=== PATIENT | male | born 1975 | race Hispanic/Latino ===

== ENCOUNTER 2020-02-15 05:30 | Observation (INO) | payer OTHER ==
[~2020-02-15] VITALS: Ht 182.9 cm; Wt 159.8 kg
[2020-02-15] MEDS ORDERED: ONDANSETRON HCL INJ 2MG/ML 2ML 2 MG/ML VIAL IV STA (05:35)
[2020-02-15] MEDS ORDERED: SODIUM CHLORIDE 0.9% 1000ML 1,000 ML IV STA (05:35)
--- NOTE | 2020-02-15 05:35 | Emergency Department Note ---
"History of Present Illnes History of Present Illness Chief Complaint: Abdominal Complaints History of Present Illness This is a 44 year old male with right sided abd pain since this AM| . Historian: Patient Arrival Mode: Car Lighter Required: No Onset (how long ago): hour(s) (1) Radiation: Reports abdomen Severity: moderate Onset quality: gradual Duration (how long): hour(s) Timing of current episode: constant Progression: worsening Chronicity: new Relieving factors: rest Exacerbating factors: movement Associated symptoms: Reports fever/chills, Reports nausea/vomiting Treatments prior to arrival: none (SUSAN ELMORE DO) Past Medical/Family History Physician Review I have reviewed the patient's past medical and family history. Any updates have been documented here. (SUSAN ELMORE DO) Past Medical History Recent Fever: No Clinical Suspicion of Infectio: No New/Unexplained Change in Ment: No Past Surgical History: None (SUSAN ELMORE DO) Review of Systems Review of Systems Constitutional: Reports chills; Denies fever EENTM: Reports no symptoms Cardiovascular: Reports no symptoms Respiratory: Reports no symptoms Gastrointestinal: Reports abdominal pain, Reports nausea; Denies vomiting Genitourinary: Reports no symptoms Musculoskeletal: Reports no symptoms Integumentary: Reports no symptoms Neurological: Reports no symptoms Psychological: Reports no symptoms Endocrine: Reports no symptoms Hematological/Lymphatic: Reports no symptoms (SUSAN ELMORE DO) Physical Exam Related Data Allergies: Coded Allergies: No Known Allergies (Unverified , 02/15/20) Vital signs reviewed: Yes (JEFF SANTIAGO DO) Physical Exam CONSTITUTIONAL HENT EYES NECK PULMONARY CARDIOVASCULAR GASTROINTESTINAL GENITOURINARY SKIN MUSCULOSKELETAL NEUROLOGICAL PSYCHOLOGICAL (SUSAN ELMORE DO) Constitutional: Present well-developed, Present morbidly obese HENT: Present normocephalic, Present atraumatic, Present oropharynx clear/moist, Present nose normal HENT L/R: Present left ext ear normal, Present right ext ear normal Eyes: Reports PERRL, Reports conjunctivae normal Neck: Present ROM normal Pulmonary: Present effort normal, Present breath sounds normal Cardiovascular: Present regular rhythm, Present heart sounds normal, Present capillary refill normal, Present normal rate Abdominal: Present soft, Present bowel sounds normal, Present tender Genitourinary: Present exam deferred Skin: Present warm, Present dry Musculoskeletal: Present ROM normal Neurological: Present alert, Present oriented x 3, Present no gross motor or sensory deficits Psychological: Present mood/affect normal, Present judgement normal (DONR, JEFF, DO) Results Laboratory Lab results reviewed: Yes Laboratory comments Laboratory Tests Test 02/15/20 05:41 White Blood Count 8.92 x10e3/uL (4.8-10.8) Red Blood Count 5.53 x10e6/uL (4.3-5.7) Hemoglobin 16.4 g/dL (14.0-18.0) Hematocrit 49.3 % (38.2-49.6) Mean Corpuscular Volume 89.2 fL (81-99) Mean Corpuscular Hemoglobin 29.7 pg (28-32) Mean Corpuscular Hemoglobin Concent 33.3 g/dL (31-35) Red Cell Distribution Width 13.9 % (11.7-14.4) Platelet Count 170 x10e3/uL (140-360) Neutrophils (%) (Auto) 62.6 % (38.7-80.0) Lymphocytes (%) (Auto) 26.2 % (18.0-39.1) Monocytes (%) (Auto) 9.5 % (4.4-11.3) Eosinophils (%) (Auto) 1.0 % (0.0-6.0) Basophils (%) (Auto) 0.4 % (0.0-1.0) Neutrophils # (Auto) 5.6 (2.1-6.9) Lymphocytes # (Auto) 2.3 (1.0-3.2) Monocytes # (Auto) 0.9 (0.2-0.8) Eosinophils # (Auto) 0.1 (0.0-0.4) Basophils # (Auto) 0.0 (0.0-0.1) Absolute Immature Granulocyte (auto 0.03 x10e3/uL (0-0.1) Urine Color Yellow (YELLOW) Urine Clarity Sl cloudy (CLEAR) Urine pH 5 (5 - 7) Urine Specific [place] >=1.030 (1.010-1.025) Urine Protein 1+ (NEGATIVE) Urine Glucose (UA) Negative (NEGATIVE) Urine Ketones Negative (NEGATIVE) Urine Blood Large (NEGATIVE) Urine Nitrite Negative (NEGATIVE) Urine Bilirubin Small (NEGATIVE) Urine Urobilinogen 0.2 mg/dL (0.2 - 1) Urine Leukocyte Esterase Negative (NEGATIVE) Urine RBC 21-50 /HPF (0-5) Urine WBC 21-50 /HPF (0-5) Urine Epithelial Cells Few /LPF (NONE) Urine Bacteria Rare /HPF (NONE) Sodium Level 139 mmol/L (136-145) Potassium Level 3.8 mmol/L (3.5-5.1) Chloride Level 106 mmol/L (98-107) Carbon Dioxide Level 22 mmol/L (22-29) Anion Gap 14.8 mmol/L (8-16) Blood Urea Nitrogen 6 mg/dL (7-26) Creatinine 1.03 mg/dL (0.72-1.25) Estimat Glomerular Filtration Rate > 60 ML/MIN (60-) BUN/Creatinine Ratio 6 (6-25) Glucose Level 104 mg/dL (74-118) Calcium Level 8.9 mg/dL (8.4-10.2) Total Bilirubin 0.6 mg/dL (0.2-1.2) Aspartate Amino Transf (AST/SGOT) 73 IU/L (5-34) Alanine Aminotransferase (ALT/SGPT) 85 IU/L (0-55) Alkaline Phosphatase 90 IU/L (40-150) Creatine Kinase 818 IU/L (30-200) Creatine Kinase MB 6.00 ng/mL (0-5.0) Troponin I 0.020 ng/mL (0-0.300) Total Protein 7.0 g/dL (6.5-8.1) Albumin 4.3 g/dL (3.5-5.0) Globulin 2.7 g/dL (2.3-3.5) Albumin/Globulin Ratio 1.6 (0.8-2.0) Lipase 71 U/L (8-78) (JEFF SANTIAGO, ) Imaging Imaging results reviewed: Yes (JEFF SANTIAGO DO) Assessment & Plan Medical Decision Making MDM Diff Dx : ACS, SBO, appendicities, biliary pathology, pancreatitis, ischemic bowel, diverticulitis, CA (SUSAN ELOMRE DO) MDM 44 yo M arrived to the ED with complaints of right flank pain, attempts made to control patient's pain unsuccessful- pt requires hospital admission for pain control. Pt given morphine and ketorolac in the ED with minimal relief. (JEFF SANTIAGO, ) Assessment & Plan Final Impression: (1) Ureteral stone (JEFF SANTIAGO DO) Depart Disposition: ADMITTED Home Meds Active Scripts Tramadol Hcl (ULTRAM) 50 Mg Tablet, 50 MG PO Q6HR PRN for Mild Pain (1-3) or Fever>100.8, #14 TAB Prov:JEFF SANTIAGO DO 02/15/20 Tamsulosin Hcl* (FLOMAX*) 0.4 Mg Cap, 0.4 MG PO DAILY, #30 CAP 0 Refills Prov:JEFF SANTIAGO DO 02/15/20 Sulfamethoxazole/Trimethoprim (BACTRIM DS TABLET) 1 Each Tablet, 1 TAB PO BID, #20 TAB 0 Refills Prov:JEFF SANTIAGO DO 02/15/20 SUSAN ELMORE DO Feb 15, 2020 05:35 JEFF SANTIAGO DO Feb 15, 2020 08:19"
[2020-02-15] MEDS ORDERED: KETOROLAC TROMETHAMINE 30 MG/ML VIAL IV STA (05:38)
[2020-02-15] MEDS ORDERED: MORPHINE SULFATE INJ 4 MG/ML INJ 1ML IV ONE (05:45)
[2020-02-15 05:53] LABS: BASOPHILS % 0.4 % (0.0-1.0); EOSINOPHILS # (AUTO) 0.1 (0.0-0.4); HEMATOCRIT 49.3 % (38.2-49.6); HEMOGLOBIN 16.4 g/dL (14.0-18.0); LYMPHOCYTES # (AUTO) 2.3 (1.0-3.2); LYMPHOCYTES % 26.2 % (18.0-39.1); MEAN CORPUSCULAR HEMOGLOBIN 29.7 pg (28-32); MEAN CORPUSCULAR HGB CONC 33.3 g/dL (31-35); MEAN CORPUSCULAR VOLUME 89.2 fL (81-99); MONOCYTES # (AUTO) 0.9 (0.2-0.8); MONOCYTES % 9.5 % (4.4-11.3); NEUTROPHILS # (AUTO) 5.6 (2.1-6.9); NEUTROPHILS % 62.6 % (38.7-80.0); PLATELET COUNT 170 x10e3/uL (140-360); RED BLOOD COUNT 5.53 x10e6/uL (4.3-5.7); RED CELL DISTRIBUTION WIDTH 13.9 % (11.7-14.4)
[2020-02-15 06:13] LABS: CLARITY,URINE SL CLOUDY (CLEAR); COLOR,URINE YELLOW (YELLOW)
[2020-02-15 06:14] LABS: LEUKOCYTE ESTERASE ,URINE NEGATIVE (NEGATIVE); NITRITE,URINE NEGATIVE (NEGATIVE); PROTEIN,URINE DIPSTICK 1+ (NEGATIVE)
[2020-02-15 06:15] LABS: BACTERIA,URINE RARE /HPF; BILIRUBIN,URINE SMALL (NEGATIVE); EPITHELIAL CELLS,URINE FEW /LPF; KETONES,URINE NEGATIVE (NEGATIVE); RBC,URINE 21-50 /HPF (0-5); URINE UROBILINOGEN 0.2 mg/dL (0.2 - 1); WBC,URINE (MAN) 21-50 /HPF (0-5)
--- OUTSIDE RECORDS SUMMARY | 2020-02-15 06:29 | XMS REPORT | Continuity of Care Document ---
Author Author [facility] Organization [facility] Address [address] [place] [address] Phone Unavailable Care Team Providers Care Cad Designer Drafter Name Role Phone Unavailable Unavailable Payers Payer Name Policy Type Policy Number Effective Date Expiration Date S ource Problems This patient has no known problems. Allergies, Adverse Reactions, Alerts Allergy Name Allergy Type Status Severity Reaction(s) Onset Date Inacti ve Date Treating Clinician Comments Source No Known Allergies DA Active U 2019-07-30 00:00:00 [facility] Medications This patient has no known medications. Procedures This patient has no known procedures. Results Test Description Test Time Test Comments Results Result Comments Source BASIC METABOLIC PANEL 2019-07-31 06:04:00 Test Item SODIUM (test code = NA) 141 mmol/L 136-145 N POTASSIUM (test code = K) 3.7 mmol/L 3.5-5.1 N CHLORIDE (test code = CL) 106.0 mmol/L 98-107 N CARBON DIOXIDE (test code = CO2) 29.0 mmol/L 21-32 N ANION GAP (test code = GAP) 9.7 10-20 L GLUCOSE (test code = GLU) 105 mg/dL 74-106 N BLOOD UREA NITROGEN (test code = BUN) 9 mg/dL 7-18 N GLOMERULAR FILTRATION RATE (test code = GFR) > 60 mL/min >=60 Estimated GFR by using Modified MDRD formula.Chronic kidney disease is defined as either kidney damageor GFR <60 mL/min/1.73 m2 for >3 months. CREATININE (test code = CREAT) 0.90 mg/dL 0.7-1.3 N BUN/CREATININE RATIO (test code = BUN/CREA) 10.0 10-20 N CALCIUM (test code = CA) 8.8 mg/dL 8.5-10.1 N BASIC METABOLIC [id number] 06:00:00* Test Item Value Reference Range Interpretation Comments SODIUM (test code = NA) 141 mmol/L 136-145 N POTASSIUM (test code = K) 3.7 mmol/L 3.5-5.1 N CHLORIDE (test code = CL) 106.0 mmol/L 98-107 N CARBON DIOXIDE (test code = CO2) mmol/L 21-32 ANION GAP (test code = GAP) 10-20 GLUCOSE (test code = GLU) mg/dL 74-106 BLOOD UREA NITROGEN (test code = BUN) mg/dL 7-18 GLOMERULAR FILTRATION RATE (test code = GFR) mL/min >=60 CREATININE (test code = CREAT) mg/dL 0.7-1.3 BUN/CREATININE RATIO (test code = BUN/CREA) 10-20 CALCIUM (test code = CA) mg/dL 8.5-10.1 CBC W/AUTO [id number] 05:17:00* Test Item Value Reference Range Interpretation Comments WHITE BLOOD CELL (test code = WBC) 6.6 K/mm3 4.5-12.5 N RED BLOOD CELL (test code = RBC) 5.28 mill/mm3 4.0-5.8 N HEMOGLOBIN (test code = HGB) 15.9 gram/dL 13.0-17.5 N HEMATOCRIT (test code = HCT) 47.9 % 42.0-52.0 N MEAN CELL VOLUME (test code = MCV) 90.7 fL 80-98 N MEAN CELL HGB (test code = MCH) 30.1 picogram 27.0-33.0 N MEAN CELL HGB CONCETRATION (test code = MCHC) 33.2 gram/dL 33.0-36. 0 N RED CELL DISTRIBUTION WIDTH (test code = RDW) 13.6 % 11.6-16. 2 N RED CELL DISTRIBUTION WIDTH SD (test code = RDW-SD) 45.8 fL 37 .0-51.0 N PLATELET COUNT (test code = PLT) 170 K/mm3 150-450 N MEAN PLATELET VOLUME (test code = MPV) 11.6 fL 6.7-11.0 H NEUTROPHIL % (test code = NT%) 59.5 % 39.0-69.0 N IMMATURE GRANULOCYTE % (test code = IG%) 0.3 % 0.0-5.0 N LYMPHOCYTE % (test code = LY%) 29.5 % 25.0-55.0 N MONOCYTE % (test code = MO%) 8.7 % 0.0-10.0 N EOSINOPHIL % (test code = EO%) 1.5 % 0.0-5.0 N BASOPHIL % (test code = BA%) 0.5 % 0.0-1.0 N NUCLEATED RBC % (test code = NRBC%) 0.0 % 0-0 N NEUTROPHIL # (test code = NT#) 3.90 K/mm3 1.8-7.7 N IMMATURE GRANULOCYTE # (test code = IG#) 0.02 x10 3/uL 0-0.03 N LYMPHOCYTE # (test code = LY#) 1.93 K/mm3 1.0-5.0 N MONOCYTE # (test code = MO#) 0.57 K/mm3 0-0.8 N EOSINOPHIL # (test code = EO#) 0.10 K/mm3 0.0-0.5 N BASOPHIL # (test code = BA#) 0.03 K/mm3 0.0-0.2 N NUCLEATED RBC # (test code = NRBC#) 0.00 K/mm3 0.0-0.1 N CBC W/AUTO [id number] 05:16:00* Test Item Value Reference Range Interpretation Comments WHITE BLOOD CELL (test code = WBC) K/mm3 4.5-12.5 RED BLOOD CELL (test code = RBC) mill/mm3 4.0-5.8 HEMOGLOBIN (test code = HGB) 15.9 gram/dL 13.0-17.5 N HEMATOCRIT (test code = HCT) 47.9 % 42.0-52.0 N MEAN CELL VOLUME (test code = MCV) fL 80-98 MEAN CELL HGB (test code = MCH) picogram 27.0-33.0 MEAN CELL HGB CONCETRATION (test code = MCHC) gram/dL 33.0-36. 0 RED CELL DISTRIBUTION WIDTH (test code = RDW) % 11.6-16. 2 RED CELL DISTRIBUTION WIDTH SD (test code = RDW-SD) fL 37 .0-51.0 PLATELET COUNT (test code = PLT) K/mm3 150-450 MEAN PLATELET VOLUME (test code = MPV) fL 6.7-11.0 NEUTROPHIL % (test code = NT%) % 39.0-69.0 IMMATURE GRANULOCYTE % (test code = IG%) % 0.0-5.0 LYMPHOCYTE % (test code = LY%) % 25.0-55.0 MONOCYTE % (test code = MO%) % 0.0-10.0 EOSINOPHIL % (test code = EO%) % 0.0-5.0 BASOPHIL % (test code = BA%) % 0.0-1.0 NEUTROPHIL # (test code = NT#) K/mm3 1.8-7.7 LYMPHOCYTE # (test code = LY#) K/mm3 1.0-5.0 MONOCYTE # (test code = MO#) K/mm3 0-0.8 EOSINOPHIL # (test code = EO#) K/mm3 0.0-0.5 BASOPHIL # (test code = BA#) K/mm3 0.0-0.2 [id number] 19:09:00* Test Item Value Reference Range Interpretation Comments TROPONIN-I (test code = TROPI) 0.023 ng/mL 0-0.045 N COMMENTS TO CREDIT RESOLUTION REPRESENTATIVE: COLLECT 3 HOURS AFTER PREVIOUS [id number] 16:49:00* Test Item Value Reference Range Interpretation Comments TROPONIN-I (test code = TROPI) 0.028 ng/mL 0-0.045 N COMMENTS TO CREDIT RESOLUTION REPRESENTATIVE: COLLECT 3 HOURS AFTER PREVIOUS SAMPLE- CT ANGIO ABD PEL W [id number] 09:01:00 Name: JAVIER JUÁREZ [facility] : 1975 Age/S: 44 / M [address] [facility] Unit #: [id number] Loc: [place] [address] Phys: Luis Fernando Kan MD Acct: [id number] Dis Date: Status: REG ER PHONE #: [phone] Exam Date: 07/30/2019 0740 FAX #: [phone] Reason: r/o AAA Report Has Been Amended EXAMS: CPT CODE: [id number] CT ANGIO ABD PEL W CONT 38840 Addendum - 07/30/2019 SIGNED 07/30/2019 ADDENDUM: [id number] CT/CTAAPWCONT CT ANGIOGRAPHY OF ABDOMEN/PELVIS WITH CONTRAST Additional 3-D reconstructed images were submitted after initial dictation. Curved planar reconstruction, maximum intensity projection (MIP) and volume rendered images were generated. No new diagnostic information. Please refer to original report for complete discussion of examination findings. at 0901 Reported and signed by: Eileen To D.O. Transcribed: 07/30/2019 (0901) [email or web address] Report HISTORY: Epigastric pain radiating to back, r/o AAA TECHNIQUE: Immediate and delayed [address] images were obtained through the abdomen and pelvis after IV administration of 100 mL of Isovue-370 contrast. Sagittal and coronal reformatted images were generated. Automated exposure reduction (Auto mA/Smart mA) was utilized in compliance with ACR Image Wisely. COMPARISON: None FINDINGS: THORACIC: Please refer to separate chest CT report. HEPATOBILIARY: Hepatic steatosis. Gallbladder is normal. No biliary dilation. PANCREAS: No rmal. SPLEEN: Normal. PAGE 1 Signed Report (CONTINUED) Name: JAVIER JUÁREZ [facility] : 1975 Age/S: 44 / M [address] [facility] Unit #: [id number] Loc: [place] [address] Phys: Luis Fernando Kan MD Acct: [id number] Dis Date: Status: REG ER PHONE #: [phone] Exam Date: 07/30/2019 07 FAX #: [phone] Reason: r/o AAA Report Has Been Amended EXAMS: CPT CODE: [id number] CT ANGIO ABD PEL W CONT 94764 <Continued> ADRENALS: 1.8 cm left adrenal adenoma. GENITOURINARY: Kidneys are normal. No hydronephrosis. Evaluation of partially collapsed urinary bladder is limited, but no obvious bladder abnormality is present. Seminal vesicles and prostate gland are unremarkable. GASTROINTESTINAL: Limited evaluation the GI tract without oral contrast. No bowel obstruction or per ienteric inflammation. Appendix is normal. VASCULAR: No evidence of aortic aneurysm or dissection. LYMPHATICS: No enlarged lymph nodes by CT size criteria. PERITONEUM/OTHER: No intraperitoneal free air. No intraperi toneal free fluid. BONES/SOFT TISSUES: Degenerative changes of the s pine, sacroiliac joints, and hips. IMPRESSION: No acute intra-abdominal process. Specifically no abdominal aortic aneurysm or dissection. LOCATION: LP at 0818 Reported and signed by: Eileen To D.O. CC: Luis Fernando Kan MD Technologist:Madeleine Yeboah RT(R),CT CTDI: DLP: Trnscb Date/Time: 07/30/2019 (08) [email or web address] Orig Print D/T: S: 07/30/2019 (820) PAGE 2 Signed Report - CTA [id number] 09:00:00 Name: JAVIER JUÁREZ [facility] : 1975 Age/S: 44 / M [address] [facility] Unit #: [id number] Loc: [place] [address] Phys: Luis Fernando Kan MD Acct: [id number] Dis Date: Status: REG ER PHONE #: [phone] Exam Date: 07/30/2019 0740 FAX #: [phone] Reason: r/o dissection Report Has Been Amended EXAMS: CPT CODE: [id number] CTA CHEST 51360 Addendum - 07/30/2019 SIGNED 07/30/2019 ADDENDUM: [id number] CT/CTACHWWO CT ANGIOGRAPHY OF CHEST WITH CONTRAST Additional 3-D reconstructed images were submitted after initial dictation. Maximum intensity projection (MIP) and volume rendered reconstructions were generated. No new diagnostic information. Please refer to original report for complete discussion of examination findings. at 0900 Reported and signed by: Eileen To D.O. Transcribed: 07/30/2019 (09) [email or web address] Report HISTORY: Epigastric pain radiating to back; hypertension; r/o dissection TECHNIQUE: [address] images were obtained through the chest after IV administration of 100 mL of Isovue-370 contrast. Multiplanar reformatted images were generated. Automated exposure reduction (Auto mA/Smart mA) was utilized in compliance with ACR Image Wisely. COMPARISON: None FINDINGS: Lungs: No airspace consolidation or pleural effusion. Central airways are patent. Cardiovascular: Normal heart size. No pericardial effusion. No thoracic aortic aneurysm or dissection. Normal caliber pulmonary arteries. PAGE 1 Signed Report (CONTINUED) Name: JAVIER JUÁREZ [facility] : 1975 Age/S: 44 / M [address] Unit #: [id number] Loc: [place] [address] Phys: Luis Fernando Kan MD Acct: [id number] Dis Date: Status: REG ER PHONE #: [phone] Exam Date: 07/30/2019 0740 FAX #: [phone] Reason: r/o dissection Report Has Been Amended EXAMS: CPT CODE: [id number] CTA CHEST 43002 <Continued> Mediastinum: No lymphadenopathy. Visualized thyroid is unremarkable. Normal esophagus. Included upper abdomen: Please refer to separate abdominal CT report. Bones and superficial soft tissues: Degenerative changes of the spine. IMPRESSION: No acute cardiopulmonary process. Specifically, no thoracic aortic dissection. LOCATION: LP at 0813 Reported and signed by: Eileen To D.O. CC: Luis Fernando Kan MD Technologist:Madeleine torres RT(R),CT CTDI: DLP: Trnscb Date/Time: 07/30/2019 (08 ) [email or web address] Orig Print D/T: S: 07/30/2019 (0816) PAG E 2 Signed Report - CT ANGIO ABD PEL W [id number] 08:18:00 Name: JAVIER JUÁREZ [facility] : 1975 Age/S: 44 / M [address] Unit #: [id number] Loc: [place] [address] Phys: Luis Fernando Kan MD Acct: [id number] Dis Date: Status: REG ER PHONE #: [phone] Exam Date: 07/30/2019739 FAX #: [phone] Reason: r/o AAA EXAMS: CPT CODE: [id number] CT ANGIO ABD PEL W CONT 97282 HISTORY: Epigastric pain radiating to back, r/o AAA TECHNIQUE: Immediate and delayed [address] images were obtained through the abdomen and pelvis after IV administration of 100 mL of Isovue-370 contrast. Sagittal and coronal reformatted images were generated. Automated exposure reduction (Auto mA/Smart mA) was utilized in compliance with ACR Image Wisely. COMPARISON: None FINDINGS: THORACIC: Please refer to separate chest CT report. HEPATOBILIARY: Hepatic steatosis. Gallbladder is normal. No biliary dilation. PANCREAS: Normal. SPLEEN: Normal. ADRENALS: 1.8 cm left adrenal adenoma. GENITOURINARY: Kidneys are normal. No hydronephrosis. Evaluation of partially collapsed urinary bladder is limited, but no obvious bladder abnormality is present. Seminal vesicles and prostate gland are unremarkable. GASTROINTESTINAL: Limited evaluation the GI tract without oral contrast. No bowel obstruction or perienteric inflammation. Appendix is normal. VASCULAR: No evidence of aortic aneurysm or dissection. LYMPHATICS: No enlarged lymph nodes by CT size criteria. PERITONEUM/OTHER: No intraperitoneal free air. No in traperitoneal free fluid. BONES/SOFT TISSUES: Degenerative changes o f the spine, sacroiliac joints, and hips. IMPRESSI ON: No acute intra-abdominal process. Specifically no abdomina l aortic aneurysm or dissection. L OCATION: LP PAGE 1 Signed Report (CONTINUED) Name: JAVIER JUÁREZ [facility] : 1975 Age/S: 44 / M [address] [facility] Unit #: [id number] Loc: [place] [address] Phys: Luis Fernando Kan MD Acct: [id number] Dis Date: Status: REG ER PHONE #: [phone] Exam Date: 07/30/2019 0740 FAX #: [phone] Reason: r/o AAA EXAMS: CPT CODE: [id number] CT ANGIO ABD PEL W CONT 76455 < Continued> at 0818 Reported and signed by: Eileen To D.O. CC: Luis Fernando Kan MD Technologist:Madeleine Yeboah RT(R),CT CTDI: DLP: Trnscb Date/Time: 07/30/2019 (0818) [email or web address] Orig Print D/T: S: 07/30/2019 (6221) PAGE 2 Signed Report - CTA [id number] 08:13:00 Name: JAVIER JUÁREZ [facility] : 1975 Age/S: 44 / M [address] Unit #: [id number] Loc: [place] [address] Phys: Luis Fernando Kan MD Acct: [id number] Dis Date: Status: REG ER PHONE #: [phone] Exam Date: 07/30/2019 0740 FAX #: [phone] Reason: r/o dissection EXAMS: CPT CODE: [id number] CTA CHEST 23612 HISTORY: Epigastric pain radiating to back; hypertension; r/o dissection TECHNIQUE: [address] images were obtained through the chest after IV administration of 100 mL of Isovue-370 contrast. Multiplanar reformatted images were generated. Automated exposure reduction (Auto mA/Smart mA) was utilized in compliance with ACR Image Wisely. COMPARISON: None FINDINGS: Lungs: No airspace consolidation or pleural effusion. Central airways are patent. Cardiovascular: Normal heart size. No pericardial effusion. No thoracic aortic aneurysm or dissection. Normal caliber pulmonary arteries. Mediastinum: No lymphadenopathy. Visualized thyroid is unremarkable. Normal esophagus. Included upper abdomen: Please refer to separate abdominal CT report. Bones and superficial soft tissues: Degenerative changes of the spine. IMPRESSION: No acute cardiopul monary process. Specifically, no thoracic aortic dissection. LOCATION: LP Electronically Si gned by Eileen To D.O. on 07/30/2019 at 0813 Reported an d signed by: Eileen To D.O. PAGE 1 Signed Report (CONTINUED) Name: JAVIER JUÁREZ [facility] : 1975 Age/S: 44 / M [address] Unit #: [id number] Loc: [place] [address] Phys: Luis Fernando Kan MD Acct: [id number] Dis Date: Status: REG ER PHONE #: [phone] Exam Date: 07/30/201940 FAX #: [phone] Reason: r/o dissection EXAMS: CPT CODE: [id number] CTA CHEST 21666 < Continued> CC: Luis Fernando Kan MD Technologist:Madeleine Yeboah RT(R),CT CTDI: DLP: Trnscb Date/Time: 07/30/2019 (812) [email or web address] Orig Print D/T: S: 07/30/2019 (815) PAGE 2 Signed Report - CT HEAD/BRAIN W/O [id number] 07:28:00 Name: JAVIER JUÁREZ [facility] : 1975 Age/S: 44 / M [address] [facility] Unit #: [id number] Loc: [place] [address] Phys: Luis Fernando Kan MD Acct: [id number] Dis Date: Status: PRE ER PHONE #: [phone] Exam Date: 07/30/2019 0655 FAX #: [phone] Reason: OSMAN HTN EXAMS: CPT CODE: [id number] CT HEAD/BRAIN W/O CONT 98226 HISTORY: Headache, hypertension TECHNIQUE: Noncontrast 2.[address] of the head. Examination acquired within 24 hours of arrival. Automated exposure control for dose reduction; DLP: 928 mGy-cm. COMPARISON: None FINDINGS: No acute hemorrhage. No CT evidence of acute infarct. No intracranial mass or mass effect. No hydrocephalus. No extra-axial fluid collection. Visualized paranasal sinuses are clear. Mastoid air cells and middle ear cavities are clear. Orbital contents are unremarkable. Calvarium and skull base are intact. IMPRESSION: No acute intracranial process. LOCATION: LP at 0728 Reported and signed by: Eileen To D.O. CC: Luis Fernando Kan MD Technologist:Alejandro Yuan RT(R)(CT) CTDI: DLP: Trnscb Date/Time: 07/30/2019 (727) [email or web address] Orig Print D/T: S: 07/30/2019 (0732) PAGE 1 Signed Report - XR CHEST 1 [id number] 07:28:00 FAX: Luis Fernanod Kan MD [place]: St: PRE Name: JAVIER KIM [facility] : [birth year] Age/S: 44/M [address] [facility] #: [id number] Loc: [place] [address] Phys: Luis Fernando Kan MD Acct: [id number] Dis Date: Status: PRE ER PHONE #: [phone] Exam Date: 07/30/2019654 FAX #: [phone] Reason: CHEST PAIN EXAMS: CPT CODE: [id number] XR CHEST 1 V 38588 HISTORY: CHEST PAIN TECHNIQUE: AP chest x-ray COMPARISON: None FINDINGS: No airspace consolidation or pleural effusion. Normal heart size. Mediastinal silhouette is unremarkable. Visualized osseous structures are grossly intact. IMPRESSION: No radiogra phic evidence of acute cardiopulmonary process. LOCATION: LP at 0728 Reported and signed by: Eileen To D.O. CC: Luis Fernando Kan MD Technologist: MOODY ROSADO RT(R) Trnscrd Date/Time/By: 07/30/2019 (07) : By: [email or web address] Orig Print D/T: S: 07/30/2019 (0753) PAGE 1 Signed R e[place] BASIC METABOLIC [id number] 06:59:00* Test Item Value Reference Range Interpretation Comments SODIUM (test code = NA) 137 mmol/L 136-145 N POTASSIUM (test code = K) 3.5 mmol/L 3.5-5.1 N CHLORIDE (test code = CL) 104.0 mmol/L 98-107 N CARBON DIOXIDE (test code = CO2) 25.0 mmol/L 21-32 N ANION GAP (test code = GAP) 11.5 10-20 N GLUCOSE (test code = GLU) 116 mg/dL 74-106 H BLOOD UREA NITROGEN (test code = BUN) 8 mg/dL 7-18 N GLOMERULAR FILTRATION RATE (test code = GFR) > 60 mL/min >=60 Estimated GFR by using Modified MDRD formula.Chronic kidney disease is defined as either kidney damageor GFR <60 mL/min/1.73 m2 for >3 months. CREATININE (test code = CREAT) 1.00 mg/dL 0.7-1.3 N BUN/CREATININE RATIO (test code = BUN/CREA) 8.0 10-20 L CALCIUM (test code = CA) 9.5 mg/dL 8.5-10.1 N HEPATIC FUNCTION [id number] 06:59:00* Test Item Value Reference Range Interpretation Comments TOTAL PROTEIN (test code = PROT) 8.0 gram/dL 6.4-8.2 N ALBUMIN (test code = ALB) 4.0 g/dL 3.4-5.0 N GLOBULIN (test code = GLOB) 4.0 gram/dL 2.7-4.2 N ALBUMIN/GLOBULIN RATIO (test code = A/G) 1.0 0.75-1.50 N BILIRUBIN TOTAL (test code = BILT) 0.70 mg/dL 0.0-1.0 N BILIRUBIN DIRECT (test code = BILD) 0.15 mg/dL 0.0-0.20 N SGOT/AST (test code = AST) 45 IUnit/L 15-37 H SGPT/ALT (test code = ALT) 47 IUnit/L 12-78 N ALKALINE PHOSPHATASE TOTAL (test code = ALKP) 114 IUnit/L 45-117 N Note change in reference range due to change in reagent. [id number] 06:59:00* Test Item Value Reference Range Interpretation Comments LIPASE (test code = LIP) 85 U/L 73.0-393.0 N [id number] 06:59:00* Test Item Value Reference Range Interpretation Comments TROPONIN-I (test code = TROPI) <0.015 ng/mL 0-0.045 N BASIC METABOLIC [id number] 06:49:00* Test Item Value Reference Range Interpretation Comments SODIUM (test code = NA) 137 mmol/L 136-145 N POTASSIUM (test code = K) 3.5 mmol/L 3.5-5.1 N CHLORIDE (test code = CL) 104.0 mmol/L 98-107 N CARBON DIOXIDE (test code = CO2) mmol/L 21-32 ANION GAP (test code = GAP) 10-20 GLUCOSE (test code = GLU) mg/dL 74-106 BLOOD UREA NITROGEN (test code = BUN) mg/dL 7-18 GLOMERULAR FILTRATION RATE (test code = GFR) mL/min >=60 CREATININE (test code = CREAT) mg/dL 0.7-1.3 BUN/CREATININE RATIO (test code = BUN/CREA) 10-20 CALCIUM (test code = CA) mg/dL 8.5-10.1 HEPATIC FUNCTION [id number] 06:49:00* Test Item Value Reference Range Interpretation Comments TOTAL PROTEIN (test code = PROT) gram/dL 6.4-8.2 ALBUMIN (test code = ALB) g/dL 3.4-5.0 GLOBULIN (test code = GLOB) gram/dL 2.7-4.2 ALBUMIN/GLOBULIN RATIO (test code = A/G) 0.75-1.50 BILIRUBIN TOTAL (test code = BILT) mg/dL 0.0-1.0 BILIRUBIN DIRECT (test code = BILD) mg/dL 0.0-0.20 SGOT/AST (test code = AST) IUnit/L 15-37 SGPT/ALT (test code = ALT) IUnit/L 12-78 ALKALINE PHOSPHATASE TOTAL (test code = ALKP) IUnit/L 45-117 [id number] 06:49:00* Test Item Value Reference Range Interpretation Comments LIPASE (test code = LIP) U/L 73.0-393.0 [id number] 06:49:00* Test Item Value Reference Range Interpretation Comments TROPONIN-I (test code = TROPI) ng/mL 0-0.045 CBC W/O [id number] 06:39:00* Test Item Value Reference Range Interpretation Comments WHITE BLOOD CELL (test code = WBC) 12.7 K/mm3 4.5-12.5 H RED BLOOD CELL (test code = RBC) 5.81 mill/mm3 4.0-5.8 H HEMOGLOBIN (test code = HGB) 17.4 gram/dL 13.0-17.5 N HEMATOCRIT (test code = HCT) 51.3 % 42.0-52.0 N MEAN CELL VOLUME (test code = MCV) 88.3 fL 80-98 N MEAN CELL HGB (test code = MCH) 29.9 picogram 27.0-33.0 N MEAN CELL HGB CONCETRATION (test code = MCHC) 33.9 gram/dL 33.0-36. 0 N RED CELL DISTRIBUTION WIDTH (test code = RDW) 13.8 % 11.6-16. 2 N PLATELET COUNT (test code = PLT) 215 K/mm3 150-450 N MEAN PLATELET VOLUME (test code = MPV) 11.1 fL 6.7-11.0 H CBC W/O [id number] 06:38:00* Test Item Value Reference Range Interpretation Comments WHITE BLOOD CELL (test code = WBC) K/mm3 4.5-12.5 RED BLOOD CELL (test code = RBC) mill/mm3 4.0-5.8 HEMOGLOBIN (test code = HGB) 17.4 gram/dL 13.0-17.5 N HEMATOCRIT (test code = HCT) 51.3 % 42.0-52.0 N MEAN CELL VOLUME (test code = MCV) fL 80-98 MEAN CELL HGB (test code = MCH) picogram 27.0-33.0 MEAN CELL HGB CONCETRATION (test code = MCHC) gram/dL 33.0-36. 0 RED CELL DISTRIBUTION WIDTH (test code = RDW) % 11.6-16. 2 PLATELET COUNT (test code = PLT) K/mm3 150-450 MEAN PLATELET VOLUME (test code = MPV) fL 6.7-11.0
--- NOTE | 2020-02-15 06:53 | Diagnostic Imaging Report ---
EXAM: CT Abdomen and Pelvis WITHOUT contrast INDICATION: ^Right sided abd pain ^20200215 ^0630 COMPARISON: None. TECHNIQUE: Abdomen and pelvis were scanned utilizing a multidetector helical scanner from the lung base to the pubic symphysis without administration of IV contrast. Absence of intravenous contrast decreases sensitivity for detection of focal lesions and vascular pathology. Coronal and sagittal reformations were obtained. Routine protocol was performed. IV CONTRAST: None ORAL CONTRAST: Water COMPLICATIONS: None RADIATION DOSE: Total DLP: 851.41 mGy*cm Estimated effective dose: (DLP x 0.015 x size factor) mSv CTDIvol has been reviewed. It is below the limits set by the Radiation Protocol Committee (RPC). FINDINGS: LINES and TUBES: None. LOWER THORAX: Unremarkable HEPATOBILIARY: Unenhanced liver is unremarkable. No biliary ductal dilation. GALLBLADDER: No radio-opaque stones or sludge. No wall thickening. SPLEEN: No splenomegaly. PANCREAS: No focal masses or ductal dilatation. ADRENALS: No adrenal nodules KIDNEYS/URETERS: Mild right perinephric fat stranding as well as minimal hydroureteronephrosis, caused by a 2 mm right ureterovesical junction calculus. Limited for evaluation of renal parenchyma without intravenous contrast. Left kidney is unremarkable. No hydronephrosis or left renal stone. GI TRACT: No abnormal distention, wall thickening, or evidence of bowel obstruction. There are diverticula within the colon without evidence of diverticulitis. Appendix is normal. PELVIC ORGANS/BLADDER: Bladder is collapsed. Prostate calcifications. LYMPH NODES: No lymphadenopathy. VESSELS: Unremarkable. PERITONEUM / RETROPERITONEUM: No free air or fluid. BONES: Degenerative changes of spine. SOFT TISSUES: Small fat-containing umbilical hernia. IMPRESSION: Mild right perinephric fat stranding as well as minimal hydroureteronephrosis, caused by a 2 mm right ureterovesical junction calculus. Signed by: Dr. Sundeep Quintanilla MD on 02/15/2020 6:50 AM
[2020-02-15] MEDS ORDERED: CEFTRIAXONE SOD 1 GM/NS 50 ML 50 ML IV ONE (07:00)
[2020-02-15 07:07] LABS: ALANINE AMINOTRANSFERASE 85 IU/L (0-55); ALBUMIN 4.3 g/dL (3.5-5.0); ALBUMIN/GLOBULIN RATIO 1.6 (0.8-2.0); ALKALINE PHOSPHATASE 90 IU/L (40-150); ANION GAP 14.8 mmol/L (8-16); BLOOD UREA NITROGEN 6 mg/dL (7-26); BUN/CREATININE RATIO 6 (6-25); CALCIUM 8.9 mg/dL (8.4-10.2); CARBON DIOXIDE 22 mmol/L (22-29); CHLORIDE 106 mmol/L (98-107); CREATINE KINASE 818 IU/L (30-200); CREATININE, SERUM 1.03 mg/dL (0.72-1.25); EST GLOMERULAR FILTRATION RATE > 60 ML/MIN (60-); GLUCOSE 104 mg/dL (74-118); POTASSIUM 3.8 mmol/L (3.5-5.1); SODIUM 139 mmol/L (136-145)
[2020-02-15] MEDS ORDERED: BACTRIM DS TAB1 EACH PO (07:08)
[2020-02-15] MEDS ORDERED: ULTRAM50 MG PO (07:13)
[2020-02-15] MEDS ORDERED: FLOMAX0.4 MG PO (07:13)
--- NOTE | 2020-02-15 07:42 | NUR ---
rn primary and charge to room to re eval, pt with pain 8/10 sudden onset, medicated with morphine by primary nurse per er md order and updated pt and rn will re-eval at 0745, pt states verbal understanding. service recovered practiced.
--- NOTE | 2020-02-15 07:42 | NUR ---
0723 primary nurse to room updated pt of plan of care and service recovery.
--- OUTSIDE RECORDS SUMMARY | 2020-02-15 08:21 | XMS REPORT | Continuity of Care Document ---
Author Author [facility] t Organization [facility] Address [address] [place] [address] Phone Unavailable Care Team Providers Care Assisted Living Associate Name Role Phone SUSAN ELMORE Unavailable Payers Payer Name Policy Type Policy Number Effective Date Expiration Date S ource Problems This patient has no known problems. Allergies, Adverse Reactions, Alerts Allergy Name Allergy Type Status Severity Reaction(s) Onset Date Inacti ve Date Treating Clinician Comments Source No Known Allergies DA Active U 2019-07-30 00:00:00 [facility] Medications This patient has no known medications. Procedures This patient has no known procedures. Results Test Description Test Time Test Comments Results Result Comments Source CT ABDOMEN/PELVIS WO 2020-02-15 06:43:00 [facility] [address] [address] Patient Name: JAVIER JUÁREZ MR #: [id number] : 1975 Age/Sex: 44/M Req #: [id number] Adm Physician: Ordered by: SUSAN ELMORE DO Report #: [id number] Location: ER Room/Bed: Procedure: [id number] CT/CT ABDOMEN/PELVIS WO Exam Date: 02/15/20 Exam Time: 629 REPORT STATUS: Signed EXAM: CT Abdomen and Pelvis WITHOUT contrast INDICATION: Right sided abd pain 20200215 COMPARISON: None. TECHNIQUE: Abdomen and pelvis were scanned utilizing a multidetector helical scanner from the lung base to the pubic symphysis without administration of IV contrast. Absence of intravenous contrast decreases sensitivity for detection of focal lesions and vascular pathology. Coronal and sagittal reformations were obtained. Routine protocol was performed. IV CONTRAST: None ORAL CONTRAST: Water COMPLICATIONS: None RADIATION DOSE: Total DLP: 851.41 mGy*cm Estimated effective dose: (DLP x 0.015 x size factor) mSv CTDIvol has been reviewed. It is below the limits set by the Radiation Protocol Committee (RPC). FINDINGS: LINES and TUBES: None. LOWER THORAX: Unremarkable HEPATOBILIARY: Unenhanced liver is unremarkable. No biliary ductal dilation. GALLBLADDER: No radio-opaque stones or sludge. No wall thickening. SPLEEN: No splenomegaly. PANCREAS: No focal masses or ductal dilatation. ADRENALS: No adrenal nodules KIDNEYS/URETERS: Mild right perinephric fat stranding as well as minimal hydroureteronephrosis , caused by a 2 mm right ureterovesical junction calculus. Limited for evaluation of renal parenchyma without intravenous contrast. Left kidney is unremarkable. No hydronephrosis or left renal stone. GI TRACT: No abnormal distention, wall thickening, or evidence of bowel obstruction. There are diverticula within the colon without evidence of diverticulitis. Appendix is normal. PELVIC ORGANS/BLADDER: Bladder is collapsed. Prostate calcifications. LYMPH NODES: No lymphadenopathy. VESSELS: Unremarkable. PERITONEUM / RETROPERITONEUM: No free air or fluid. BONES: Degenerative changes of spine. SOFT TISSUES: Small fat-containing umbilical hernia. IMPRESSION: Mild right perinephric fat stranding as well as minimal hydroureteronephrosis, caused by a 2 mm right ureterovesical junction calculus. Signed by: Dr. Sundeep Elliott MD on 02/15/2020 6:50 AM Dictated By: SUNDEEP ELLIOTT MD 9 Transcribed By: ALIDA on 02/15/2050 COPY TO: SUSAN ELMORE DO BASIC METABOLIC PANEL 2019-07-31 06:04:00 Test Item [...] CA) 8.8 mg/dL 8.5-10.1 N BASIC METABOLIC [id number] 06:00:00* Test Item Value Reference Range Interpretation [...] code = CA) mg/dL 8.5-10.1 CBC W/AUTO [id number] 05:17:00* Test Item Value Reference Range Interpretation [...] NRBC#) 0.00 K/mm3 0.0-0.1 N CBC W/AUTO [id number] 05:16:00* Test Item Value Reference Range Interpretation [...] # (test code = BA#) K/mm3 0.0-0.2 [id number] 19:09:00* Test Item Value Reference Range Interpretation Comments TROPONIN-I (test code = TROPI) 0.023 ng/mL 0-0.045 N COMMENTS TO FIRESTOP/CONTAINMENT WORKER: COLLECT 3 HOURS AFTER PREVIOUS [id number] 16:49:00* Test Item Value Reference Range Interpretation Comments TROPONIN-I (test code = TROPI) 0.028 ng/mL 0-0.045 N COMMENTS TO FIRESTOP/CONTAINMENT WORKER: COLLECT 3 HOURS AFTER PREVIOUS SAMPLE- CT ANGIO ABD PEL W [id number] 09:01:00 Name: JAVIER JUÁREZ [facility] : 1975 Age/S: 44 / M [address] [facility] Unit #: [id number] Loc: [place] [address] Phys: Luis Fernando Kan MD Acct: [id number] Dis Date: Status: REG ER PHONE #: [phone] Exam Date: 07/30/2019 0740 FAX #: [phone] Reason: r/o AAA Report Has Been Amended EXAMS: CPT CODE: [id number] CT ANGIO ABD PEL W CONT 31601 Addendum - 07/30/2019 SIGNED 07/30/2019 ADDENDUM: [id number] CT/CTAAPWCONT CT ANGIOGRAPHY OF ABDOMEN/PELVIS WITH CONTRAST [...] 1 Signed Report (CONTINUED) Name: JAVIER JUÁREZ [facility] : 1975 Age/S: 44 / M [address] Unit #: [id number] Loc: [place] [address] Phys: Luis Fernando Kan MD Acct: [id number] Dis Date: Status: REG ER PHONE #: [phone] Exam Date: 07/30/201940 FAX #: [phone] Reason: r/o AAA Report Has Been Amended EXAMS: CPT CODE: [id number] CT ANGIO ABD PEL W CONT 15695 <Continued> ADRENALS: 1.8 cm left adrenal adenoma. [...] RT(R),CT CTDI: DLP: Trnscb Date/Time: 07/30/2019 (0818) [email or web address] Orig Print D/T: S: 07/30/2019 (0821) PAGE 2 Signed Report - CTA [id number] 09:00:00 Name: JAVIER JUÁREZ [facility] : 1975 Age/S: 44 / M [address] Unit #: [id number] Loc: [place] [address] Phys: Luis Fernando Kan MD Acct: [id number] Dis Date: Status: REG ER PHONE #: [phone] Exam Date: 07/30/2019 0740 FAX #: [phone] Reason: r/o dissection Report Has Been Amended EXAMS: CPT CODE: [id number] CTA CHEST 28450 Addendum - 07/30/2019 SIGNED 07/30/2019 ADDENDUM: [id number] CT/CTACHWWO CT ANGIOGRAPHY OF CHEST WITH CONTRAST Additional 3-D reconstructed images were submitted after initial dictation. Maximum intensity projection (MIP) and volume rendered reconstructions were generated. No new diagnostic information. Please refer to original report for complete discussion of examination findings. at 0900 Reported and signed by: Eileen To D.O. Transcribed: 07/30/2019 (0900) [email or web address] Report HISTORY: Epigastric pain radiating to [...] 1 Signed Report (CONTINUED) Name: JAVIER JUÁREZ [facility] : 1975 Age/S: 44 / M [address] [facility] Unit #: [id number] Loc: [place] [address] Phys: Luis Fernando Kan MD Acct: [id number] Dis Date: Status: REG ER PHONE #: [phone] Exam Date: 07/30/2019 0740 FAX #: [phone] Reason: r/o dissection Report Has Been Amended EXAMS: CPT CODE: [id number] CTA CHEST 94000 <Continued> Mediastinum: No lymphadenopathy. Visualized thyroid is [...] CTDI: DLP: Trnscb Date/Time: 07/30/2019 (08 ) [email or web address] Orig Print D/T: S: 07/30/2019 (0816) PAG E 2 Signed Report - CT ANGIO ABD PEL W [id number] 08:18:00 Name: JAVIER JUÁREZ [facility] : 1975 Age/S: 44 / M [address] [facility] Unit #: [id number] Loc: [place] [address] Phys: Luis Fernando Kan MD Acct: [id number] Dis Date: Status: REG ER PHONE #: [phone] Exam Date: 07/30/2019 07 FAX #: [phone] Reason: r/o AAA EXAMS: CPT CODE: [id number] CT ANGIO ABD PEL W CONT 15640 HISTORY: Epigastric pain radiating to back, r/o [...] 1 Signed Report (CONTINUED) Name: JAVIER JUÁREZ [facility] : 1975 Age/S: 44 / M [address] Unit #: [id number] Loc: [place] [address] Phys: Luis Fernando Kan MD Acct: [id number] Dis Date: Status: REG ER PHONE #: [phone] Exam Date: 07/30/201940 FAX #: [phone] Reason: r/o AAA EXAMS: CPT CODE: [id number] CT ANGIO ABD PEL W CONT 57597 < Continued> at 0818 Reported and signed by: Eileen To D.O. CC: Luis Fernando Kan MD Technologist:Madeleine Yeboah RT(R),CT CTDI: DLP: Trnscb Date/Time: 07/30/2019 (817) [email or web address] Orig Print D/T: S: 07/30/2019 (820) PAGE 2 Signed Report - CTA [id number] 08:13:00 Name: JAVIER JUÁREZ [facility] : 1975 Age/S: 44 / M [address] Unit #: [id number] Loc: [place] [address] Phys: Luis Fernando Kan MD Acct: [id number] Dis Date: Status: REG ER PHONE #: [phone] Exam Date: 07/30/2019 0740 FAX #: [phone] Reason: r/o dissection EXAMS: CPT CODE: [id number] CTA CHEST 33157 HISTORY: Epigastric pain radiating to back; hypertension; [...] 1 Signed Report (CONTINUED) Name: JAVIER JUÁREZ [facility] : 1975 Age/S: 44 / M [address] Unit #: [id number] Loc: [place] [address] Phys: Luis Fernando Kan MD Acct: [id number] Dis Date: Status: REG ER PHONE #: [phone] Exam Date: 07/30/2019 0740 FAX #: [phone] Reason: r/o dissection EXAMS: CPT CODE: [id number] CTA CHEST 06090 < Continued> CC: Luis Fernando Kan MD Technologist:Madeleine Yeboah RT(R),CT CTDI: DLP: Trnscb Date/Time: 07/30/2019 (812) [email or web address] Orig Print D/T: S: 07/30/2019 (16) PAGE 2 Signed Report - CT HEAD/BRAIN W/O [id number] 07:28:00 Name: JAVIER JUÁREZ [facility] : 1975 Age/S: 44 / M [address] Unit #: [id number] Loc: [place] [address] Phys: Luis Fernando Kan MD Acct: [id number] Dis Date: Status: PRE ER PHONE #: [phone] Exam Date: 07/30/2019 0655 FAX #: [phone] Reason: OSMAN HTN EXAMS: CPT CODE: [id number] CT HEAD/BRAIN W/O CONT 95606 HISTORY: Headache, hypertension TECHNIQUE: Noncontrast 2.5 mm [...] D.O. CC: Luis Fernando Kan MD Technologist:Alejandro Yuan, RT(R)(CT) CTDI: DLP: Trnscb Date/Time: 07/30/2019 (727) [email or web address] Orig Print D/T: S: 07/30/2019 (0716) PAGE 1 Signed Report - XR CHEST 1 [id number] 07:28:00 FAX: Luis Fernando Kan MD [place]: [address] St: PRE Name: JAVIER KIM [facility] : [birth year] Age/S: 44/M [address] [facility] Unit #: [id number] Loc: [place] [address] Phys: Luis Fernando Kan MD Acct: [id number] Dis Date: Status: PRE ER PHONE #: [phone] Exam Date: 07/30/2019 06 FAX #: [phone] Reason: CHEST PAIN EXAMS: CPT CODE: [id number] XR CHEST 1 V 61076 HISTORY: CHEST PAIN TECHNIQUE: AP chest x-ray COMPARISON: None FINDINGS: No airspace consolidation or pleural effusion. Normal heart size. Mediastinal silhouette is unremarkable. Visualized osseous structures are grossly intact. IMPRESSION: No radiogra phic evidence of acute cardiopulmonary process. LOCATION: at 0728 Reported and signed by: Eileen To D.O. CC: Luis Fernando Kan MD Technologist: MOODY ROSADO RT(R) Trnscrd Date/Time/By: 07/30/2019 (56) : By: [email or web address] Orig Print D/T: S: 07/30/2019 (0899) PAGE 1 Signed R eport BASIC METABOLIC [id number] 06:59:00* Test Item Value Reference Range Interpretation [...] CA) 9.5 mg/dL 8.5-10.1 N HEPATIC FUNCTION [id number] 06:59:00* Test Item Value Reference Range Interpretation [...] reference range due to change in reagent. [id number] 06:59:00* Test Item Value Reference Range Interpretation Comments LIPASE (test code = LIP) 85 U/L 73.0-393.0 N [id number] 06:59:00* Test Item Value Reference Range Interpretation Comments TROPONIN-I (test code = TROPI) <0.015 ng/mL 0-0.045 N BASIC METABOLIC [id number] 06:49:00* Test Item Value Reference Range Interpretation [...] code = CA) mg/dL 8.5-10.1 HEPATIC FUNCTION [id number] 06:49:00* Test Item Value Reference Range Interpretation [...] TOTAL (test code = ALKP) IUnit/L 45-117 [id number] 06:49:00* Test Item Value Reference Range Interpretation Comments LIPASE (test code = LIP) U/L 73.0-393.0 [id number] 06:49:00* Test Item Value Reference Range Interpretation Comments TROPONIN-I (test code = TROPI) ng/mL 0-0.045 CBC W/O [id number] 06:39:00* Test Item Value Reference Range Interpretation [...] MPV) 11.1 fL 6.7-11.0 H CBC W/O [id number] 06:38:00* Test Item Value Reference Range Interpretation [...]
[2020-02-15] MEDS: ONDANSETRON HCL INJ 2MG/ML 2ML 2 MG/ML VIAL IV PRN ×2 (08:45→15:08)
[2020-02-15] MEDS: MORPHINE SULFATE INJ 4 MG/ML INJ 1ML IV PRN ×3 (08:45→21:15)
--- NOTE | 2020-02-15 09:00 | NUR ---
PT ARRIVED TO FLOOR VIA W/C, . PATIENT IS RESTING IN BED, AAOX3. RESP EVEN AND UNLABORED. NO ACUTE DISTRESS NOTED. EDUCATED PT ABOUT FALL PRECAUTIONS. PT VERBALIZED UNDERSTANDING. BED IS LOWEST POSITION AND LOCKED. SIDE RAILS X2. CALL LIGHT WITH IN EASY REACH. PT DENIES PAIN AT THIS TIME. WILL CONT TO MONITOR.
[2020-02-15] MEDS: SODIUM CHLORIDE 0.9% 1000ML 1,000 ML IV SCH ×2 (11:07→20:09)
[2020-02-15 11:15] VITALS: BP 138/89
[2020-02-15 12:00] VITALS: BP 162/97
--- NOTE | 2020-02-15 12:30 | NUR ---
URINE STRAINED SMALL OBJECT IN URINE SENT TO LAB, FOR ANALYSIS.
[2020-02-15 16:00] VITALS: BP 159/108
--- NOTE | 2020-02-15 16:25 | History and Physical ---
CHIEF COMPLAINT: A 44-year-old gentleman, came in with abdominal pain. HISTORY OF PRESENTING ILLNESS: Mr. Baker is a 44-year-old gentleman with no medical history except for hypertension which he does not take care of, was usual state of health until he started with right-sided abdominal pain radiating to the groin. The patient had a CT and was found to have urethral stones. The patient admitted to the hospital for pain control and also for ureteral stones. PAST MEDICAL HISTORY: No significant history except for hypertension which he is not taking any medications for. PAST SURGICAL HISTORY: 1. History of hernia surgery when he was a young kid, right side. 2. History of jaw surgery, status post trauma. ALLERGIES: NKDA. MEDICATIONS: None. SOCIAL HISTORY: Drinks heavily during the weekends. History of smoking 2-3 cigarettes a day. No IV drug abuse. REVIEW OF SYSTEMS: Negative for chest pain. No shortness of breath. Positive for abdominal pain. Some nausea. No vomiting. No diarrhea. No constipation. No rectal bleeding. No hematemesis. No hematochezia. No chills. No psychological problems either. No diplopia. No blurry vision. PHYSICAL EXAMINATION: VITAL SIGNS: On arrival to the ED, 97.6 temperature, pulse of 80, respirations of 20, blood pressure is 162/97, and pulse oximetry of 96%. HEENT: Normocephalic, atraumatic. The patient is obese. CVS: S1 and S2 normal. Regular rhythm. ABDOMEN: Tender in the right mid quadrant. CVA tenderness present. EXTREMITIES: No clubbing. No cyanosis. Positive for trace edema. LABORATORY VALUES: Initial white count is 8.92, hemoglobin of 16.4, and hematocrit 49.3. Chemistry shows sodium 139, potassium 3.8, BUN of 6, and creatinine is 1.03. ALT of 85, AST of 75, creatine kinase is 818, and lipase is 71. Urine was cloudy with RBCs and WBCs. Serology; valverde virus is pending. IMAGING STUDIES: Abdominal CT shows mild right perinephric fat stranding as well as minimal hydroureteronephrosis caused by 2 mm right ureterovesical junction calculus which the patient has passed. ASSESSMENT: Mr. Shamir Baker with: 1. Urethral stone. The patient has passed it. 2. Pyelonephritis. 3. Hydronephrosis. 4. 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 5. Obesity. PLAN: Continue on IV fluids 125 mL an hour. Blood cultures are pending. Urine cultures are pending. Urology consult will be done. We will start the patient on antibiotics. Currently, he is on Rocephin 1 g. We will go ahead and keep that and continue on. Further recommendation per clinical course. Also, the Urology consult, Dr. Pham will monitor the patient. Fluid resuscitation. Continue with fluids for rhabdomyolysis. MD MANISHA Britton/MODL /[id number]
--- NOTE | 2020-02-15 19:20 | NUR ---
Patient received sitting up in bed. AAO x 4. Patient had no complaints of pain. Respirations even and non-labored. IVF infusing at 125 cc/hr. Safety measures implemented. Patient instructed to call for assistance when needed.
[2020-02-15 20:00] VITALS: BP 176/113
[2020-02-15] MEDS ORDERED: CLONIDINE HCL 0.1 MG TAB PO PRN (20:15)
--- NOTE | 2020-02-15 20:21 | NUR ---
Patient's BP elevated (176/113). Dr. Warren notified. New orders received for Clonidine 0.1 mg Q6H PRN for SBP > 170 and KUB in am (02/15).
[2020-02-15] MEDS: CEFTRIAXONE SOD 1 GM/NS 50 ML 50 ML IV SCH (21:02)
[2020-02-16] VITALS: BP 152/102
[2020-02-16 01:03] VITALS: BP 152/102
[2020-02-16 04:00] VITALS: BP 169/111
[2020-02-16 05:15] LABS: BASOPHILS % 0.4 % (0.0-1.0); EOSINOPHILS # (AUTO) 0.2 (0.0-0.4); HEMATOCRIT 47.8 % (38.2-49.6); HEMOGLOBIN 15.7 g/dL (14.0-18.0); LYMPHOCYTES # (AUTO) 2.2 (1.0-3.2); LYMPHOCYTES % 30.2 % (18.0-39.1); MEAN CORPUSCULAR HEMOGLOBIN 29.9 pg (28-32); MEAN CORPUSCULAR HGB CONC 32.8 g/dL (31-35); MONOCYTES # (AUTO) 0.8 (0.2-0.8); MONOCYTES % 10.8 % (4.4-11.3); NEUTROPHILS # (AUTO) 4.2 (2.1-6.9); NEUTROPHILS % 56.3 % (38.7-80.0); PLATELET COUNT 149 x10e3/uL (140-360); RED BLOOD COUNT 5.25 x10e6/uL (4.3-5.7); RED CELL DISTRIBUTION WIDTH 14.1 % (11.7-14.4)
[2020-02-16 05:47] LABS: ALANINE AMINOTRANSFERASE 65 IU/L (0-55); ALBUMIN 3.7 g/dL (3.5-5.0); ALBUMIN/GLOBULIN RATIO 1.5 (0.8-2.0); ALKALINE PHOSPHATASE 80 IU/L (40-150); ANION GAP 14.6 mmol/L (8-16); BLOOD UREA NITROGEN 7 mg/dL (7-26); BUN/CREATININE RATIO 8 (6-25); CALCIUM 8.5 mg/dL (8.4-10.2); CARBON DIOXIDE 22 mmol/L (22-29); CHLORIDE 107 mmol/L (98-107); CREATININE, SERUM 0.84 mg/dL (0.72-1.25); EST GLOMERULAR FILTRATION RATE > 60 ML/MIN (60-); GLUCOSE 91 mg/dL (74-118); POTASSIUM 3.6 mmol/L (3.5-5.1); SODIUM 140 mmol/L (136-145)
[2020-02-16] MEDS: SODIUM CHLORIDE 0.9% 1000ML 1,000 ML IV SCH (05:50)
[2020-02-16] MEDS ORDERED: LOSARTAN POTASSIUM 25 MG TAB PO STA (05:51)
--- NOTE | 2020-02-16 07:00 | NUR ---
Walking rounds done. BSSR given.
[2020-02-16 07:25] VITALS: BP 155/108
--- NOTE | 2020-02-16 07:25 | NUR ---
PATIENT IN BED RESTING WITH NO S/S OF DISCOMFORT. IV FLUID INFUSING ORDERED. URINE STAINING IN PROGRESS. BED IN LOWER POSITION, CALL LIGHT AT REACH.
[2020-02-16 08:00] VITALS: BP 155/108
--- NOTE | 2020-02-16 08:55 | Diagnostic Imaging Report ---
Abdomen 1 view KUB INDICATION: ^Kidney Stones ^[id number] ^0823 Comparison: CT dated today prior. Discussion: No data loops of bowel are identified. Partially visualized lung bases are clear. No suspicious calcification identified. The previously identified 2 mm stone is likely beyond the resolution of radiographs. No suspicious calcification is noted. Negative for acute osseous abnormality. Mild to moderate multilevel degenerative changes of the spine are noted. IMPRESSION: Nonobstructive bowel gas pattern. The previously noted 2 mm right ureterovesicular junction stone is likely beyond the resolution of radiographs and is not well visualized on today's examination. No suspicious calcification identified at the level of the renal shadows. Signed by: Jovanny Patterson MD on 02/16/2020 8:52 AM
[2020-02-16] MEDS: CEFTRIAXONE SOD 1 GM/NS 50 ML 50 ML IV SCH (09:00)
--- NOTE | 2020-02-16 09:33 | Progress Note ---
DATE: SUBJECTIVE: A 44-year-old male, who came in with acute pyelo and also urethral stone, which the patient has passed. Currently, the patient is afebrile. No chest pain. No shortness of breath. Blood pressures have been running high according to the nurses. We will start him on losartan 50 mg twice a day. OBJECTIVE: VITAL SIGNS: Temperature is 97.6, pulse of 66, respirations of 20, blood pressure is 152/102. HEENT: Normocephalic, atraumatic. Obese patient. CVS: S1 and S2 normal. ABDOMEN: Soft and nontender. No CVA tenderness present. EXTREMITIES: No clubbing, no cyanosis, no edema. LABORATORY VALUES: White count is 7.41 today, hemoglobin 15.7, hematocrit 47.8. Chemistries are pending. Last sodium and potassium were normal with a BUN and creatinine of 6 and 1.03. Urine, microbiology not done, but antibiotics were given prior to the culture taken from patient. ASSESSMENT: Mr. Shamir Bergeron with: Urethral stone, which he has passed. Currently, the patient is on Rocephin IV. The patient has also gotten a clonidine for his blood pressure. PLAN: Okay to discharge him. The patient has been given strict ER warnings. Also has to drink about 2 L of water. Asked to follow up with his primary care physician next week for his blood pressure monitoring and also for his creatinine monitoring. Further recommendation per clinical course. Can be discharged. The patient will be discharged on losartan 50 mg twice a day and also asked to be followed up with the primary care physician in 1 week at the minimum and strict ER warnings given to the patient. MD NENO BrittonJ/MODL /[id number]
--- NOTE | 2020-02-16 10:51 | NUR ---
PATIENT SITTING AT THE BED TALKING ON THE PHONE, NO COMPLAIN VOICED. IV FLUID IN PROGRESS. CALL LIGHT AT REACH.
[2020-02-16 12:00] VITALS: BP 148/89
[2020-02-16] MEDS ORDERED: LOSARTAN POTASS25 MG PO (14:13)
[2020-02-16] MEDS ORDERED: AUGMENTIN 875-1 EACH PO (14:14)
--- NOTE | 2020-02-16 14:45 | NUR ---
PATIENT DISCHARGED HOME. DISCHARGE INSTRUCTIONS, PRESCRIPTIONS, AND FOLLOW UP GIVEN TO PATIENT, HE VERBALIZED UNDERSTANDING. IV TO RIGHT AC REMOVED WITH TIP INTACT. ALL PERSONAL ITEMS TAKEN WITH PATIENT. REFUSED WHEEL CHAIR, BUT WAS ACCOMPANIED BY HOSPITAL STAFF TO FRONT LOBBY IN STABLE CONDITION.
[2020-02-16] MEDS ORDERED: LOSARTAN POTASSIUM 25 MG TAB PO SCH (18:00)
== END 2020-02-16 14:40 | disposition home or self-care (01) ==
LOC: ER 05:40 → ERHOLD 07:53 → MED/SURG2 09:52
PROVIDERS: ADMIT Family Medicine; ATTEND Family Medicine
DX: N13.6 Pyonephrosis (principal); E66.01 Morbid (severe) obesity due to excess calories; I10 Essential (primary) hypertension; Z87.891 Personal history of nicotine dependence; Z68.42 Body mass index [BMI] 45.0-49.9, adult; Z11.59 Encounter for screening for other viral diseases
CPT/HCPCS: 36415 ×2; 74018; 74176; 80053 ×2; 81001; 82550; 82553; 83690; 84484; 85025 ×2; 88300; 99284; G0378 ×2; J0696 ×2; J1885; J2270; J2405; J7030; U0002

== ENCOUNTER → 2024-11-18 | Day surgery (SDC) | payer OTHER ==
[~2024-11-18] MED LIST: ACETAMINOPHEN325 M1 PO; AUGMENTIN 875-1 EACH PO; BACTRIM DS TAB1 EACH PO; FLOMAX0.4 MG PO; LIDOCAINE HCL 2% LOCAL INJ 5 ML SDV VIAL INJ ONE; LOSARTAN POTASS25 MG PO; MIDAZOLAM HCL 2 MG/2 ML VIAL ONE; PROPOFOL IV EMULSION 10 MG/ML 20 ML VIAL ONE; SKYRIZI150 MG/1 M IM; ULTRAM50 MG PO
[2024-11-18] MEDS: LACTATED RINGER'S 1,000 ML ONE (11:20)
[2024-11-18 12:37] VITALS: TEMP 98.7
[2024-11-18 13:10] VITALS: BP 141/86; PULSE 81; RESP 16; O2SAT 96
== END | disposition home or self-care (01) ==
LOC: OR 10:45
PROVIDERS: ATTEND Internal Medicine Gastroenterology
DX: Z12.11 Encounter for screening for malignant neoplasm of colon (principal); D12.2 Benign neoplasm of ascending colon; D12.3 Benign neoplasm of transverse colon; D12.4 Benign neoplasm of descending colon; K57.90 Diverticulosis of intestine, part unspecified, without perforation or abscess without bleeding; K64.8 Other hemorrhoids; I10 Essential (primary) hypertension; Z01.810 Encounter for preprocedural cardiovascular examination; Z72.0 Tobacco use; E66.01 Morbid (severe) obesity due to excess calories; Z87.442 Personal history of urinary calculi
CPT/HCPCS: 45384; 45385; 93005; J2003; J2250; J2704; J7121